=== PATIENT | female | born 1945 | race Caucasian/White ===

== ENCOUNTER 2022-02-25 10:15 | Inpatient (IN) | payer OTHER, MEDICAID ==
[~2022-02-25] VITALS: Ht 154.9 cm; Wt 52.6 kg
[~2022-02-25 10:15] MED LIST: ALBU8HFA PO; AMLO5TAB PO; ASCO500C17 PO; CHOL500044 PO; CYAN500T71 PO; CYCL-394 PO; FAMO40TA58 PO; FURO40TA4 PO; IPRA3AMP31 IH; LEVO-65 PO; MONT-40 PO; NICO-687 TOP; PRED10TA23 PO; UMEC1DIS INH; VITA0.4T18 PO
[2022-02-25] MEDS ORDERED: ringers solution, lacted 1,000 ML IV ONE (10:45)
[2022-02-25] MEDS ORDERED: albuterol 2.5 MG/3 ML nebule CONTNEB PRN (10:45)
[2022-02-25] MEDS ORDERED: methylPREDNISolone sod succ 125mg/2ml vial IV ONE (10:47)
[2022-02-25 10:53] LABS: ABG BASE EXCESS 5.1 mmol/L (-2.0-2.0); ABG HCO3 31.5 mmol/L (22.0-26.0); ABG OXYGEN SATURATION 99.7 % (94-97); ABG PO2 (T) 321.2 mmHg (75.0-100.0); ALLEN'S TEST POSITIVE; FCOHb 0.9 % (0.0-3.9); FLOW 15 L/min; FMetHb 0.2 % (0.0-1.5); FO2Hb 98.6 % (94-97); TOTAL HEMOGLOBIN 13.5 G/dl (12.0-16.0)
--- NOTE | 2022-02-25 10:58 | NUR ---
ATTEMPT EKG, UNABLE TO GET A GOOD READING PER PATIENT TRIPODING AND CAUSING TO MUCH ARTIFACT.
[2022-02-25 11:05] LABS: BASOPHILS % (AUTO) 0.3 % (0-1); EOSINOPHILS # (AUTO) 0.1 X10'3 (0-0.9); EOSINOPHILS % (AUTO) 0.5 % (0-6); HEMATOCRIT 39.2 % (35.0-45.0); HEMOGLOBIN 12.9 g/dl (12.0-16.0); LYMPHOCYTES # (AUTO) 2.4 X10'3 (1.1-4.8); LYMPHOCYTES % (AUTO) 14.5 % (21-51); MEAN CORPUSCULAR HEMOGLOBIN 30.6 PG (27.0-31.0); MEAN CORPUSCULAR HGB CONC 32.9 g/dL (33.0-36.5); MEAN CORPUSCULAR VOLUME 93.2 FL (78-98); MEAN PLATELET VOLUME 6.8 FL (7.4-10.4); MONOCYTES # (AUTO) 1.4 X10'3 (0-0.9); MONOCYTES % (AUTO) 8.4 % (2-12); NEUTROPHILS # (AUTO) 12.4 X10'3 (1.8-7.7); NEUTROPHILS % (AUTO) 76.3 % (42-75); PLATELET COUNT 425 X10'3 (140-440); RED BLOOD COUNT 4.21 X10'6 (4.20-5.60); RED CELL DISTRIBUTION WIDTH 14.5 % (11.5-14.5); WHITE BLOOD COUNT 16.2 X10'3 (4.5-11.0)
[2022-02-25 11:16] LABS: APTT 26 SECONDS (22-32); D-DIMER 3.93 MG/L FEU (0-0.50)
[2022-02-25 11:29] LABS: ALANINE AMINOTRANSFERASE 144 U/L (12-78); ALBUMIN 3.4 G/DL (3.4-5.0); ALBUMIN/GLOBULIN RATIO 0.9 (1.1-1.5); ALKALINE PHOSPHATASE 103 IU/L (46-116); ANION GAP 3 (8-16); ASPARTATE AMINO TRANSFERASE 207 U/L (10-37); BILIRUBIN,TOTAL 0.5 MG/DL (0.1-1.0); BLOOD UREA NITROGEN 18 MG/DL (7-18); CALCIUM 9.4 MG/DL (8.5-10.1); CHLORIDE 100 MMOL/L (99-107); GLUCOSE 108 MG/DL (70-104); POTASSIUM 4.4 MMOL/L (3.5-5.1); SODIUM 139 MMOL/L (135-145); TOTAL CARBON DIOXIDE 35.6 MMOL/L (24-32); TOTAL PROTEIN 7.2 G/DL (6.4-8.2); eGFR 61 ML/MIN
--- NOTE | 2022-02-25 11:38 | NUR ---
Pts daughter Umm: [phone]
[2022-02-25] MEDS ORDERED: morphine 2 MG/ML inj. syringe IV ONE (11:40)
[2022-02-25] MEDS ORDERED: iohexol 350MG/ML 100ml bottle IV ONE (12:03)
[2022-02-25] MEDS ORDERED: LORazepam 2 mg/ml vial IV ONE (13:20)
[2022-02-25] MEDS ORDERED: potassium CL 10mEq/100ml bag 100 ML IV PRN (15:05)
[2022-02-25] MEDS ORDERED: ipratropium/albuterol 3ml nebule NEB PRN (15:05)
[2022-02-25] MEDS ORDERED: POTASSIUM BICARB 20meq eff tab 20 MEQ TABLET.EFF PO PRN ×2 (15:05)
[2022-02-25] MEDS ORDERED: magnesium Cl slow-release 64mg tablet PO PRN (15:05)
[2022-02-25] MEDS ORDERED: mag hydrox/Alum hydrox/simeth 30ml oral suspension PO PRN (15:05)
[2022-02-25] MEDS ORDERED: ondansetron/PF 4mg/2ml inj IV PRN (15:05)
[2022-02-25] MEDS ORDERED: magnesium 2GM in 50ml NS 50 ML IV PRN (15:05)
[2022-02-25] MEDS ORDERED: ondansetron 4mg rapidly disintigrating tab PO PRN (15:05)
[2022-02-25] MEDS ORDERED: magnesium hydroxide 30ml (MOM) UD suspension PO PRN (15:05)
[2022-02-25] MEDS ORDERED: acetaminophen 650mg rectal suppository RC PRN (15:05)
[2022-02-25] MEDS ORDERED: HYDROcodone/acetaminophen 5mg/325mg tablet PO PRN (15:05)
[2022-02-25] MEDS ORDERED: bisacodyl 10mg suppository rectal RC PRN (15:05)
[2022-02-25] MEDS ORDERED: magnesium 4gm in 100ml NS 100 ML IV PRN (15:05)
[2022-02-25] MEDS ORDERED: HYDROmorphone/PF 0.2 MG/ML SYRINGE IV PRN (15:05)
[2022-02-25] MEDS ORDERED: acetaminophen 325mg tablet PO PRN ×2 (15:05)
[2022-02-25 16:08] LABS: MAGNESIUM 1.7 MG/DL (1.5-2.4); POTASSIUM 4.1 MMOL/L (3.5-5.1)
[2022-02-25] MEDS: levoFLOXACIN-Levaquin 500mg/D5 100 ML IV SCH (16:15)
[2022-02-25] MEDS: normal saline 1000ml 1,000 ML IV SCH (16:15)
[2022-02-25] MEDS: HYDROcodone/acetaminophen 10/325mg tab PO PRN (16:41)
[2022-02-25] MEDS ORDERED: ipratropium/albuterol 3ml nebule NEB SCH (19:00)
[2022-02-25] MEDS ORDERED: LEVO-65 PO (19:40)
[2022-02-25] MEDS ORDERED: PRED10TA PO (19:40)
[2022-02-25] MEDS ORDERED: FURO-150 PO (19:40)
--- NOTE | 2022-02-25 19:50 | NUR ---
Patient states she is allergic to Atrovent & refused SVN tx . States she can only take Xopenex
[2022-02-25] MEDS ORDERED: docusate sod 100mg capsule PO SCH (20:00)
[2022-02-25] MEDS: K and/or MAG REPLACEMENT MC SCH (20:00)
[2022-02-25] MEDS ORDERED: temazepam 15mg capsule PO PRN (21:00)
[2022-02-25 21:45] VITALS: BP 121/103
[2022-02-25] MEDS: HYDROmorphone inj. 0.5 MG/0.5 ML DISP.SYRIN IV PRN (22:14)
[2022-02-25] MEDS: methylPREDNISolone sod succ/PF 40mg inj. IV SCH (22:23)
[2022-02-26] MEDS: methylPREDNISolone sod succ/PF 40mg inj. IV SCH ×4 (01:58→19:49)
[2022-02-26 02:00] VITALS: BP 132/68
[2022-02-26] MEDS: levalbuterol 0.63mg/3ml nebule IH SCH ×4 (02:30→20:23)
[2022-02-26] MEDS: HYDROmorphone inj. 0.5 MG/0.5 ML DISP.SYRIN IV PRN ×4 (02:54→16:10)
[2022-02-26] MEDS: normal saline 1000ml 1,000 ML IV SCH (04:49)
[2022-02-26 06:00] VITALS: BP 142/74
--- NOTE | 2022-02-26 06:10 | NUR ---
Patient in room PCU 3016. I have received report from MARCIE Ramos and had the opportunity to ask questions and assume patient care.
[2022-02-26] MEDS: HYDROcodone/acetaminophen 10/325mg tab PO PRN (06:19)
[2022-02-26] MEDS: K and/or MAG REPLACEMENT MC SCH ×2 (07:27→19:59)
[2022-02-26 07:57] LABS: BASOPHILS % (AUTO) 0.3 % (0-1); EOSINOPHILS % (AUTO) 0 % (0-6); HEMATOCRIT 28.7 % (35.0-45.0); HEMOGLOBIN 9.6 g/dl (12.0-16.0); LYMPHOCYTES # (AUTO) 0.4 X10'3 (1.1-4.8); LYMPHOCYTES % (AUTO) 3.2 % (21-51); MEAN CORPUSCULAR HEMOGLOBIN 31.2 PG (27.0-31.0); MEAN CORPUSCULAR HGB CONC 33.3 g/dL (33.0-36.5); MEAN CORPUSCULAR VOLUME 93.9 FL (78-98); MEAN PLATELET VOLUME 7.3 FL (7.4-10.4); MONOCYTES # (AUTO) 0.4 X10'3 (0-0.9); MONOCYTES % (AUTO) 3.2 % (2-12); NEUTROPHILS # (AUTO) 10.9 X10'3 (1.8-7.7); NEUTROPHILS % (AUTO) 93.3 % (42-75); PLATELET COUNT 303 X10'3 (140-440); RED BLOOD COUNT 3.06 X10'6 (4.20-5.60); RED CELL DISTRIBUTION WIDTH 15.1 % (11.5-14.5); WHITE BLOOD COUNT 11.7 X10'3 (4.5-11.0)
[2022-02-26] MEDS ORDERED: docusate sod 100mg capsule PO PRN (08:05)
[2022-02-26 08:12] LABS: ALANINE AMINOTRANSFERASE 138 U/L (12-78); ALBUMIN 2.8 G/DL (3.4-5.0); ALBUMIN/GLOBULIN RATIO 0.9 (1.1-1.5); ALKALINE PHOSPHATASE 77 IU/L (46-116); ANION GAP 9 (8-16); ASPARTATE AMINO TRANSFERASE 209 U/L (10-37); BILIRUBIN,TOTAL 0.4 MG/DL (0.1-1.0); BLOOD UREA NITROGEN 23 MG/DL (7-18); BUN/CREATININE RATIO 23.2 (6.6-38.0); CALCIUM 7.9 MG/DL (8.5-10.1); CHLORIDE 105 MMOL/L (99-107); CREATININE 0.99 MG/DL (0.40-0.90); GLUCOSE 108 MG/DL (70-104); MAGNESIUM 1.8 MG/DL (1.5-2.4); POTASSIUM 4.3 MMOL/L (3.5-5.1); SODIUM 142 MMOL/L (135-145); TOTAL CARBON DIOXIDE 28.2 MMOL/L (24-32); TOTAL PROTEIN 5.9 G/DL (6.4-8.2); eGFR 55 ML/MIN
[2022-02-26] MEDS: levoFLOXACIN-Levaquin 500mg/D5 100 ML IV SCH (08:25)
[2022-02-26] MEDS ORDERED: diatrozoate meglu/diatrozoate sod (37% iodine) 120ML oral solution PO SCH (09:00)
[2022-02-26] MEDS: guaiFENesin/DM 10ml UD oral syrup PO PRN (10:58)
[2022-02-26 11:00] VITALS: BP 149/79
[2022-02-26] MEDS ORDERED: albuterol 2.5 MG/3 ML nebule NEB PRN (11:20)
[2022-02-26] MEDS ORDERED: LORazepam 2 mg/ml vial IV PRN (11:20)
[2022-02-26] MEDS ORDERED: LORazepam 0.5 MG tablet PO PRN (11:20)
[2022-02-26] MEDS ORDERED: iohexol 300mg/ml 100ml inj. ONE (11:24)
--- NOTE | 2022-02-26 13:27 | NUR ---
Malnutrition Consult: Pt admit DX COPD exacerbation, liver mass w/ possible mets, transaminitis, and hx COPD increased SOB 24hr [employer] per EMR. Pt reports unsure of wt loss w/ decreased intake [employer] per RN Malnutrition Screen. Pt pending physical assessment at this time w/ PO 75% first regular diet meal last night pending further meal intake documentation per EMR. Pt current standing scaled wt 49kg w/ no prior scaled wt hx and appears WD/WN per MD note. Pt prior admit 02/19 seen by [facility] and reported UBW ~105 pounds (consistent w/ current scaled wt), is always hungry, and denied wt loss. At this time pt lacks minimum malnutrition criteria. Addendum: 02/26/22 at [address] Amended: Links added.
[2022-02-26] MEDS ORDERED: ipratropium/albuterol 3ml nebule IH PRN (14:05)
[2022-02-26] MEDS ORDERED: HYDROcodone/acetaminophen 5mg/325mg tablet PO PRN (14:15)
[2022-02-26 15:00] VITALS: BP 130/67
[2022-02-26] MEDS: cyclobenzaprine 10mg tablet PO SCH ×2 (17:35→19:49)
[2022-02-26] MEDS ORDERED: furosemide 20 MG/2 ML vial IV ONE (17:40)
[2022-02-26] MEDS: LORazepam 2 mg/ml vial IV PRN (17:48)
[2022-02-26 18:00] VITALS: BP 130/58
--- NOTE | 2022-02-26 18:20 | NUR ---
Problems reprioritized. Patient report given, questions answered & plan of care reviewed with MARCIE Giron.
--- NOTE | 2022-02-26 18:30 | NUR ---
Patient in room PCU 3016. I have received report from MARCIE Vidal and had the opportunity to ask questions and assume patient care.
[2022-02-26 22:00] VITALS: BP 118/65
[2022-02-27 02:00] VITALS: BP 154/70
[2022-02-27] MEDS: oxyCODONE IR 5mg (immed. release) tablet PO PRN ×2 (02:31→20:03)
[2022-02-27] MEDS: methylPREDNISolone sod succ/PF 40mg inj. IV SCH ×4 (02:31→20:02)
[2022-02-27] MEDS: LORazepam 2 mg/ml vial IV PRN (02:43)
[2022-02-27] MEDS: levalbuterol 0.63mg/3ml nebule IH SCH ×4 (03:15→21:38)
[2022-02-27 06:00] VITALS: BP 140/82
--- NOTE | 2022-02-27 06:30 | NUR ---
Problems reprioritized. Patient report given, questions answered & plan of care reviewed with MARCIE Vidal.
--- NOTE | 2022-02-27 06:40 | NUR ---
Patient in room PCU 3016. I have received report from MARCIE Giron and had the opportunity to ask questions and assume patient care.
[2022-02-27 07:30] LABS: BASOPHILS % (AUTO) 0.2 % (0-1); EOSINOPHILS % (AUTO) 0 % (0-6); HEMATOCRIT 30.6 % (35.0-45.0); HEMOGLOBIN 10.6 g/dl (12.0-16.0); LYMPHOCYTES # (AUTO) 0.5 X10'3 (1.1-4.8); LYMPHOCYTES % (AUTO) 4.7 % (21-51); MEAN CORPUSCULAR HGB CONC 34.4 g/dL (33.0-36.5); MEAN CORPUSCULAR VOLUME 93.1 FL (78-98); MONOCYTES # (AUTO) 0.6 X10'3 (0-0.9); NEUTROPHILS # (AUTO) 9.7 X10'3 (1.8-7.7); NEUTROPHILS % (AUTO) 89.1 % (42-75); PLATELET COUNT 250 X10'3 (140-440); RED BLOOD COUNT 3.29 X10'6 (4.20-5.60); WHITE BLOOD COUNT 10.9 X10'3 (4.5-11.0)
[2022-02-27] MEDS: furosemide 20 MG/2 ML vial IV SCH ×2 (07:38→20:02)
[2022-02-27] MEDS: cyclobenzaprine 10mg tablet PO SCH ×4 (07:39→20:03)
[2022-02-27 07:40] LABS: ALANINE AMINOTRANSFERASE 156 U/L (12-78); ALBUMIN 3.2 G/DL (3.4-5.0); ALKALINE PHOSPHATASE 83 IU/L (46-116); ANION GAP 6 (8-16); ASPARTATE AMINO TRANSFERASE 220 U/L (10-37); BILIRUBIN,TOTAL 0.4 MG/DL (0.1-1.0); BLOOD UREA NITROGEN 28 MG/DL (7-18); BUN/CREATININE RATIO 31.8 (6.6-38.0); CALCIUM 8.8 MG/DL (8.5-10.1); CHLORIDE 102 MMOL/L (99-107); CREATININE 0.88 MG/DL (0.40-0.90); GLUCOSE 111 MG/DL (70-104); MAGNESIUM 2.4 MG/DL (1.5-2.4); POTASSIUM 4.5 MMOL/L (3.5-5.1); SODIUM 141 MMOL/L (135-145); TOTAL CARBON DIOXIDE 32.8 MMOL/L (24-32); TOTAL PROTEIN 6.4 G/DL (6.4-8.2); eGFR 63 ML/MIN
[2022-02-27] MEDS: amLODIPine 5mg tablet PO SCH (07:40)
[2022-02-27] MEDS: ascorbic acid 500mg tablet PO SCH (07:41)
[2022-02-27] MEDS: HYDROmorphone inj. 0.5 MG/0.5 ML DISP.SYRIN IV PRN ×3 (07:44→16:43)
[2022-02-27] MEDS ORDERED: furosemide 20MG tablet PO SCH (08:00)
[2022-02-27] MEDS: K and/or MAG REPLACEMENT MC SCH ×2 (10:00→20:00)
[2022-02-27] MEDS: levoFLOXACIN 250mg tablet PO SCH (10:59)
[2022-02-27 11:00] VITALS: BP 136/70
[2022-02-27 15:11] LABS: AFP,SERUM, TUMOR MARKER 42.3 ng/mL (0.0-9.2); CANCER ANTIGEN 125 47.4 U/mL (0.0-38.1); CARCINOEMBRYONIC ANTIGEN 3.6 ng/mL (0.0-4.7)
[2022-02-27 15:28] VITALS: BP 131/71
[2022-02-27 18:00] VITALS: BP 140/74
--- NOTE | 2022-02-27 18:20 | NUR ---
Problems reprioritized. Patient report given, questions answered & plan of care reviewed with MARCIE Giron.
--- NOTE | 2022-02-27 18:30 | NUR ---
Patient in room PCU 3016. I have received report from MARCIE Vidal and had the opportunity to ask questions and assume patient care.
[2022-02-27] MEDS: guaiFENesin/DM 10ml UD oral syrup PO PRN (20:03)
[2022-02-27] MEDS: LORazepam 0.5 MG tablet PO PRN (21:51)
[2022-02-27 22:00] VITALS: BP 131/65
[2022-02-28] VITALS (7 sets, daily range): BP systolic 116–151; BP diastolic 57–79
[2022-02-28] MEDS: HYDROmorphone inj. 0.5 MG/0.5 ML DISP.SYRIN IV PRN ×3 (00:23→15:03)
[2022-02-28] MEDS: methylPREDNISolone sod succ/PF 40mg inj. IV SCH ×4 (02:12→19:26)
[2022-02-28] MEDS: levalbuterol 0.63mg/3ml nebule IH SCH ×4 (03:14→20:43)
--- NOTE | 2022-02-28 06:10 | NUR ---
Problems reprioritized. Patient report given, questions answered & plan of care reviewed with MARCIE Vidal.
--- NOTE | 2022-02-28 06:10 | NUR ---
Patient in room PCU 3016. I have received report from MARCIE Giron and had the opportunity to ask questions and assume patient care.
[2022-02-28 08:46] LABS: BASOPHILS % (AUTO) 0.2 % (0-1); EOSINOPHILS % (AUTO) 0 % (0-6); HEMATOCRIT 35.6 % (35.0-45.0); HEMOGLOBIN 11.8 g/dl (12.0-16.0); LYMPHOCYTES # (AUTO) 0.5 X10'3 (1.1-4.8); LYMPHOCYTES % (AUTO) 4.5 % (21-51); MEAN CORPUSCULAR HEMOGLOBIN 31.1 PG (27.0-31.0); MEAN CORPUSCULAR HGB CONC 33.1 g/dL (33.0-36.5); MEAN CORPUSCULAR VOLUME 94.1 FL (78-98); MEAN PLATELET VOLUME 7.3 FL (7.4-10.4); MONOCYTES # (AUTO) 0.3 X10'3 (0-0.9); MONOCYTES % (AUTO) 3.3 % (2-12); NEUTROPHILS # (AUTO) 9.2 X10'3 (1.8-7.7); PLATELET COUNT 276 X10'3 (140-440); RED BLOOD COUNT 3.78 X10'6 (4.20-5.60); RED CELL DISTRIBUTION WIDTH 14.8 % (11.5-14.5)
[2022-02-28 09:10] LABS: ALANINE AMINOTRANSFERASE 145 U/L (12-78); ALBUMIN 3.6 G/DL (3.4-5.0); ALKALINE PHOSPHATASE 93 IU/L (46-116); ANION GAP 7 (8-16); ASPARTATE AMINO TRANSFERASE 161 U/L (10-37); BILIRUBIN,TOTAL 0.5 MG/DL (0.1-1.0); BLOOD UREA NITROGEN 31 MG/DL (7-18); BUN/CREATININE RATIO 28.2 (6.6-38.0); CALCIUM 8.9 MG/DL (8.5-10.1); CHLORIDE 99 MMOL/L (99-107); GLUCOSE 143 MG/DL (70-104); MAGNESIUM 2.1 MG/DL (1.5-2.4); POTASSIUM 4.4 MMOL/L (3.5-5.1); SODIUM 143 MMOL/L (135-145); TOTAL CARBON DIOXIDE 36.9 MMOL/L (24-32); TOTAL PROTEIN 7.3 G/DL (6.4-8.2); eGFR 49 ML/MIN
[2022-02-28] MEDS: K and/or MAG REPLACEMENT MC SCH ×2 (09:24→19:11)
[2022-02-28] MEDS: cyclobenzaprine 10mg tablet PO SCH ×4 (10:57→19:27)
[2022-02-28] MEDS: amLODIPine 5mg tablet PO SCH (10:57)
[2022-02-28] MEDS: levoFLOXACIN 250mg tablet PO SCH (10:57)
[2022-02-28] MEDS: furosemide 20 MG/2 ML vial IV SCH ×2 (10:57→19:30)
[2022-02-28] MEDS: ascorbic acid 500mg tablet PO SCH (10:57)
[2022-02-28] MEDS: oxyCODONE IR 5mg (immed. release) tablet PO PRN (12:40)
--- NOTE | 2022-02-28 19:00 | NUR ---
Problems reprioritized. Patient report given, questions answered & plan of care reviewed with MARCIE Palacios.
[2022-02-28] MEDS: guaiFENesin ER 600mg tablet PO SCH (19:27)
[2022-02-28] MEDS: LORazepam 0.5 MG tablet PO PRN (19:27)
[2022-03-01] MEDS: methylPREDNISolone sod succ/PF 40mg inj. IV SCH ×4 (01:36→20:07)
[2022-03-01 02:00] VITALS: BP 136/75
[2022-03-01] MEDS: HYDROmorphone inj. 0.5 MG/0.5 ML DISP.SYRIN IV PRN ×2 (02:33→23:13)
[2022-03-01] MEDS: levalbuterol 0.63mg/3ml nebule IH SCH ×4 (03:10→19:47)
[2022-03-01 06:00] VITALS: BP 135/78
[2022-03-01 07:12] LABS: BASOPHILS % (AUTO) 0.2 % (0-1); EOSINOPHILS % (AUTO) 0 % (0-6); HEMATOCRIT 37.3 % (35.0-45.0); HEMOGLOBIN 12.4 g/dl (12.0-16.0); LYMPHOCYTES # (AUTO) 0.4 X10'3 (1.1-4.8); LYMPHOCYTES % (AUTO) 3.4 % (21-51); MEAN CORPUSCULAR HEMOGLOBIN 30.9 PG (27.0-31.0); MEAN CORPUSCULAR HGB CONC 33.2 g/dL (33.0-36.5); MEAN CORPUSCULAR VOLUME 93.2 FL (78-98); MEAN PLATELET VOLUME 7.6 FL (7.4-10.4); MONOCYTES # (AUTO) 0.4 X10'3 (0-0.9); MONOCYTES % (AUTO) 3.5 % (2-12); NEUTROPHILS # (AUTO) 10.8 X10'3 (1.8-7.7); NEUTROPHILS % (AUTO) 92.9 % (42-75); PLATELET COUNT 232 X10'3 (140-440); RED BLOOD COUNT 4.01 X10'6 (4.20-5.60); WHITE BLOOD COUNT 11.7 X10'3 (4.5-11.0)
[2022-03-01 07:41] LABS: ALANINE AMINOTRANSFERASE 130 U/L (12-78); ALBUMIN 3.4 G/DL (3.4-5.0); ALKALINE PHOSPHATASE 91 IU/L (46-116); ANION GAP 8 (8-16); BILIRUBIN,TOTAL 0.7 MG/DL (0.1-1.0); BLOOD UREA NITROGEN 28 MG/DL (7-18); BUN/CREATININE RATIO 40.6 (6.6-38.0); CALCIUM 8.6 MG/DL (8.5-10.1); CHLORIDE 96 MMOL/L (99-107); CREATININE 0.69 MG/DL (0.40-0.90); GLUCOSE 119 MG/DL (70-104); MAGNESIUM 2.2 MG/DL (1.5-2.4); SODIUM 137 MMOL/L (135-145); TOTAL CARBON DIOXIDE 33.3 MMOL/L (24-32); TOTAL PROTEIN 6.8 G/DL (6.4-8.2); eGFR 83 ML/MIN
[2022-03-01 07:55] LABS: ASPARTATE AMINO TRANSFERASE 150 U/L (10-37); POTASSIUM 5.2 MMOL/L (3.5-5.1)
[2022-03-01] MEDS: amLODIPine 5mg tablet PO SCH (08:19)
[2022-03-01] MEDS: guaiFENesin ER 600mg tablet PO SCH ×2 (08:19→20:06)
[2022-03-01] MEDS: oxyCODONE IR 5mg (immed. release) tablet PO PRN ×2 (08:20→17:45)
[2022-03-01] MEDS: ascorbic acid 500mg tablet PO SCH (08:20)
[2022-03-01] MEDS: furosemide 20 MG/2 ML vial IV SCH ×2 (08:21→20:06)
--- NOTE | 2022-03-01 08:33 | NUR ---
Initial: Pt admitted w/ COPD exacerbation, liver mass w/ possible mets, and transaminitis per EMR. Pt currently NPO for biopsy today though previously on Regular diet w/ avg intake 70% of meals meeting est needs. LBM 02/26. No nutrition intervention implemented at this time, will continue to monitor. Recs; 1. Continue Regular diet as tolerated 2. Bowel care per rx 3. Weekly wts Addendum: 03/01/22 at [address] Amended: Links added.
[2022-03-01] MEDS: cyclobenzaprine 10mg tablet PO SCH ×5 (08:37→20:06)
[2022-03-01] MEDS: levoFLOXACIN 250mg tablet PO SCH (12:40)
[2022-03-01 15:00] VITALS: BP 146/58
--- NOTE | 2022-03-01 17:10 | NUR ---
Contacted Dr. Chester Needs blood from [place], can't get in touch with Dr. Flynn to confirm if this needs to be ordered tonight. Lab will not order until its been confirmed.
[2022-03-01 18:00] VITALS: BP 109/63
[2022-03-01] MEDS: K and/or MAG REPLACEMENT MC SCH ×2 (19:55→19:56)
[2022-03-01] MEDS: LORazepam 0.5 MG tablet PO PRN (20:06)
[2022-03-01 22:00] VITALS: BP 139/74
[2022-03-02] VITALS (15 sets, daily range): BP systolic 111–149; BP diastolic 60–79
[2022-03-02] MEDS: levalbuterol 0.63mg/3ml nebule IH SCH ×4 (03:32→20:30)
[2022-03-02 07:03] LABS: BASOPHILS % (AUTO) 0.2 % (0-1); EOSINOPHILS % (AUTO) 0.1 % (0-6); HEMATOCRIT 37.2 % (35.0-45.0); HEMOGLOBIN 12.3 g/dl (12.0-16.0); LYMPHOCYTES # (AUTO) 0.5 X10'3 (1.1-4.8); LYMPHOCYTES % (AUTO) 3.8 % (21-51); MEAN CORPUSCULAR HGB CONC 33.1 g/dL (33.0-36.5); MEAN CORPUSCULAR VOLUME 93.9 FL (78-98); MEAN PLATELET VOLUME 7.2 FL (7.4-10.4); MONOCYTES # (AUTO) 0.9 X10'3 (0-0.9); MONOCYTES % (AUTO) 6.7 % (2-12); NEUTROPHILS # (AUTO) 11.4 X10'3 (1.8-7.7); NEUTROPHILS % (AUTO) 89.2 % (42-75); PLATELET COUNT 262 X10'3 (140-440); RED BLOOD COUNT 3.96 X10'6 (4.20-5.60); RED CELL DISTRIBUTION WIDTH 14.8 % (11.5-14.5); WHITE BLOOD COUNT 12.7 X10'3 (4.5-11.0)
[2022-03-02 07:34] LABS: ALANINE AMINOTRANSFERASE 162 U/L (12-78); ALBUMIN 3.5 G/DL (3.4-5.0); ALBUMIN/GLOBULIN RATIO 1.1 (1.1-1.5); ALKALINE PHOSPHATASE 101 IU/L (46-116); ANION GAP 4 (8-16); ASPARTATE AMINO TRANSFERASE 202 U/L (10-37); BILIRUBIN,TOTAL 0.6 MG/DL (0.1-1.0); BLOOD UREA NITROGEN 35 MG/DL (7-18); BUN/CREATININE RATIO 32.1 (6.6-38.0); CALCIUM 8.9 MG/DL (8.5-10.1); CHLORIDE 96 MMOL/L (99-107); CREATININE 1.09 MG/DL (0.40-0.90); GLUCOSE 113 MG/DL (70-104); POTASSIUM 4.3 MMOL/L (3.5-5.1); SODIUM 138 MMOL/L (135-145); TOTAL CARBON DIOXIDE 38.2 MMOL/L (24-32); TOTAL PROTEIN 6.8 G/DL (6.4-8.2); eGFR 49 ML/MIN
[2022-03-02] MEDS: methylPREDNISolone sod succ/PF 40mg inj. IV SCH ×2 (07:59→19:46)
[2022-03-02] MEDS: furosemide 20 MG/2 ML vial IV SCH ×2 (07:59→19:46)
[2022-03-02] MEDS: amLODIPine 5mg tablet PO SCH (08:00)
[2022-03-02] MEDS: cyclobenzaprine 10mg tablet PO SCH ×4 (08:00→21:27)
[2022-03-02] MEDS: ascorbic acid 500mg tablet PO SCH (08:00)
[2022-03-02] MEDS: guaiFENesin ER 600mg tablet PO SCH ×2 (08:00→19:46)
[2022-03-02] MEDS: K and/or MAG REPLACEMENT MC SCH ×2 (08:00→20:00)
[2022-03-02] MEDS: HYDROmorphone inj. 0.5 MG/0.5 ML DISP.SYRIN IV PRN ×3 (08:04→19:45)
[2022-03-02] MEDS ORDERED: gelatin sponge, absorbable (Gelfoam 12-7MM) sponge TP ONE (08:43)
[2022-03-02] MEDS ORDERED: LIDOcaine 1% W/epiNEPHrine 1:100,000 20ml vial ONE (08:43)
[2022-03-02] MEDS ORDERED: LIDOcaine 1% 30ml preserv. free vial ONE (08:44)
[2022-03-02] MEDS ORDERED: fentaNYL/PF 50MCG/1 ML 2ML syringe ONE (08:52)
[2022-03-02] MEDS ORDERED: midazolam 1 mg/ML 2ml injection ONE (08:52)
--- NOTE | 2022-03-02 10:15 | NUR ---
PAGER ID: [phone] MESSAGE: [phone] Neal Castañeda: patient is back from biopsy. can she eat again? thanks, [phone]
[2022-03-02] MEDS: normal saline 1000ml 1,000 ML IV SCH ×2 (10:48→23:20)
[2022-03-02] MEDS: levoFLOXACIN 250mg tablet PO SCH (11:57)
--- NOTE | 2022-03-02 18:19 | NUR ---
Problems reprioritized. Patient report given, questions answered & plan of care reviewed with MARCIE Kemp.
--- NOTE | 2022-03-02 18:30 | NUR ---
Patient in room U 3012L. I have received report from Jannie JACK and had the opportunity to ask questions and assume patient care. Pt is sitting high fowlers in bed finishing dinner. Pt declines any c/o pain at this time. Pt on 2l NC. No s/s of distress. 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 Will continue to monitor.
[2022-03-03] MEDS: oxyCODONE IR 5mg (immed. release) tablet PO PRN ×2 (00:32→07:31)
[2022-03-03] MEDS: HYDROmorphone inj. 0.5 MG/0.5 ML DISP.SYRIN IV PRN ×2 (01:43→12:35)
[2022-03-03 02:00] VITALS: BP 135/65
[2022-03-03] MEDS: levalbuterol 0.63mg/3ml nebule IH SCH ×3 (02:18→15:00)
[2022-03-03 06:00] VITALS: BP 124/69
--- NOTE | 2022-03-03 06:55 | NUR ---
Problems reprioritized. Patient report given, questions answered & plan of care reviewed with [place] RN.
[2022-03-03] MEDS: K and/or MAG REPLACEMENT MC SCH (08:00)
[2022-03-03] MEDS: LORazepam 0.5 MG tablet PO PRN (09:43)
[2022-03-03] MEDS: ascorbic acid 500mg tablet PO SCH (09:44)
[2022-03-03] MEDS: cyclobenzaprine 10mg tablet PO SCH ×2 (09:44→13:32)
[2022-03-03] MEDS: amLODIPine 5mg tablet PO SCH (09:45)
[2022-03-03] MEDS: guaiFENesin ER 600mg tablet PO SCH (09:45)
[2022-03-03] MEDS: furosemide 20 MG/2 ML vial IV SCH (09:45)
[2022-03-03] MEDS: methylPREDNISolone sod succ/PF 40mg inj. IV SCH (09:46)
[2022-03-03] MEDS ORDERED: PRED10TA23 PO (10:31)
[2022-03-03] MEDS ORDERED: OXYC-658 PO ×2 (10:31→10:32)
[2022-03-03 12:24] VITALS: BP 125/55
[2022-03-03] MEDS: levoFLOXACIN 250mg tablet PO SCH (12:35)
[2022-03-03] MEDS: normal saline 1000ml 1,000 ML IV SCH (12:40)
[2022-03-03] MEDS ORDERED: LEVA0.6319 NEB (14:34)
--- NOTE | 2022-03-03 15:00 | NUR ---
Patient and daughter given discharge papers and instructions discussed with patient. IVL removed. Patient also given oxycodone prescription to take to the pharmacy. Patient taken home by family.
[2022-03-08] MEDS ORDERED: ATRIN INH (15:45)
[2022-03-08] MEDS ORDERED: CALC600T82 PO (15:45)
[2022-03-08] MEDS ORDERED: ASCO500T23 PO (15:45)
[2022-03-08] MEDS ORDERED: CYCL5TAB PO (15:45)
[2022-03-08] MEDS ORDERED: CHOL500044 PO (15:45)
[2022-03-08] MEDS ORDERED: NICO-687 TOP (15:45)
[2022-03-08] MEDS ORDERED: MONT-40 PO (15:45)
[2022-03-08] MEDS ORDERED: ALBU8.5H17 (15:45)
[2022-03-08] MEDS ORDERED: IPRA3AMP31 NEB (15:45)
[2022-03-08] MEDS ORDERED: LEVA1.2544 NEB (15:45)
[2022-03-08] MEDS ORDERED: AMLO5TAB16 PO (15:45)
[2022-03-08] MEDS ORDERED: UMEC1DIS INH (15:45)
[2022-03-08] MEDS ORDERED: FAMO40TA8 PO (15:45)
[2022-03-10] MEDS ORDERED: AZI25OT PO (09:59)
[2022-03-10] MEDS ORDERED: MSC30T PO (09:59)
[2022-03-10] MEDS ORDERED: HYDR-3965 PO (09:59)
[2022-03-12] MEDS ORDERED: HYDR-3965 PO (11:40)
[2022-03-12] MEDS ORDERED: MORP30TA60 PO (11:40)
== END 2022-03-03 16:15 | disposition home health service (06) | DRG 435 ==
LOC: ER 10:15 → MERGE 15:55 → ED HOLD 15:55 → PCU 3S 20:45
PROVIDERS: ADMIT Family Medicine; ATTEND Family Medicine
PROC: B32T1ZZ Computerized Tomography (CT Scan) of Left Pulmonary Artery using Low Osmolar Contrast (ICD-10-PCS; 2022-02-25)
PROC: B3201ZZ Computerized Tomography (CT Scan) of Thoracic Aorta using Low Osmolar Contrast (ICD-10-PCS; 2022-02-25)
PROC: B32S1ZZ Computerized Tomography (CT Scan) of Right Pulmonary Artery using Low Osmolar Contrast (ICD-10-PCS; 2022-02-25)
PROC: 5A09357 Assistance with Respiratory Ventilation, Less than 24 Consecutive Hours, Continuous Positive Airway Pressure (ICD-10-PCS; 2022-02-26)
PROC: BW211ZZ Computerized Tomography (CT Scan) of Abdomen and Pelvis using Low Osmolar Contrast (ICD-10-PCS; 2022-02-26)
PROC: 5A0935A Assistance with Respiratory Ventilation, Less than 24 Consecutive Hours, High Flow/Velocity Cannula (ICD-10-PCS; 2022-02-27)
PROC: 5A0935A Assistance with Respiratory Ventilation, Less than 24 Consecutive Hours, High Flow/Velocity Cannula (ICD-10-PCS; 2022-02-28)
PROC: 0FB03ZX Excision of Liver, Percutaneous Approach, Diagnostic (ICD-10-PCS; principal; 2022-03-02)
DX: C22.0 Liver cell carcinoma (principal); J96.21 Acute and chronic respiratory failure with hypoxia; J44.1 Chronic obstructive pulmonary disease with (acute) exacerbation; J44.0 Chronic obstructive pulmonary disease with (acute) lower respiratory infection; N17.9 Acute kidney failure, unspecified; J20.9 Acute bronchitis, unspecified; D72.829 Elevated white blood cell count, unspecified; I10 Essential (primary) hypertension; B19.20 Unspecified viral hepatitis C without hepatic coma; M54.9 Dorsalgia, unspecified; Z20.822 Contact with and (suspected) exposure to COVID-19; R16.0 Hepatomegaly, not elsewhere classified; R74.01 Elevation of levels of liver transaminase levels; R74.8 Abnormal levels of other serum enzymes; R79.89 Other specified abnormal findings of blood chemistry; M41.9 Scoliosis, unspecified; Z82.49 Family history of ischemic heart disease and other diseases of the circulatory system; Z99.81 Dependence on supplemental oxygen; Z87.891 Personal history of nicotine dependence
CPT/HCPCS: 36415; 36600; 47000; 71045; 71275; 74160; 77012; 80053; 82103; 82378; 82803; 83605; 83735; 83880; 84132; 84145; 84484; 85018; 85025; 85379; 85610; 85730; 86301; 86304; 86870; 86885; 86900; 86901; 86902; 86905; 87040; 87081; 87502; 87503; 87635; 88307; 88313; 88341; 93005; 93925; 93931; 94640; 94660; 94760; 96361; 96374; 96375; 97116; 97161; 97530; 99152; 99153; 99285; A4615; A7015; C9803; G0378; J1170; J1940; J1956; J2060; J2250; J2270; J2920; J2930; J3010; J3490; J7030; J7040; J7120; J7614; Q9963; Q9967